=== PATIENT | male | born 1965 | race Asian ===

== ENCOUNTER 2024-04-01 13:32 | Emergency (ER) | payer OTHER ==
[2024-04-01 13:46] VITALS: BP 173/91; PULSE 60; RESP 16; TEMP 98.4; BMI 26.6
[2024-04-01] MEDS ORDERED: BACITRACIN ZINC 15 GM TUBE TOPICAL OINTMENT ONE (15:19)
[2024-04-01] MEDS: BACITRACIN ZINC 15 GM TUBE TOPICAL OINTMENT TP ONE (15:40)
[2024-04-01] MEDS ORDERED: ACETAMINOPHEN 500 MG TABLET (FP) ONE (15:42)
[2024-04-01] MEDS ORDERED: DIPHTH,PERTUSS(ACELL),TET 0.5 ML DISP.SYRIN IM ONE (15:43)
[2024-04-01] MEDS: DIPHTH,PERTUSS(ACELL),TET 0.5 ML DISP.SYRIN IM ONE (15:45)
[2024-04-01] MEDS: ACETAMINOPHEN 500 MG TABLET (FP) PO ONE (15:51)
== END 2024-04-01 16:01 | disposition home or self-care (01) ==
LOC: JER 13:32 → EDBD 13:32 → JER 16:01
PROC: 3E0234Z Introduction of Serum, Toxoid and Vaccine into Muscle, Percutaneous Approach (ICD-10-PCS; principal; 2024-04-01)
DX: T20.27XA Burn of second degree of neck, initial encounter (principal); X11.0XXA Contact with hot water in bath or tub, initial encounter; Y99.0 Civilian activity done for income or pay; Z23 Encounter for immunization
CPT/HCPCS: 90715; 99284-25